=== PATIENT | male | born 1970 | race Caucasian/White ===

== ENCOUNTER 2021-11-13 11:44 | Day surgery (SDC) | payer OTHER ==
[2021-11-08 16:04] VITALS: BMI 40.6
[~2021-11-13 11:44] MED LIST: LIDOCAINE 1% (10MG/ML) FOR IV START INTRADERMA PRN
[2021-11-13] MEDS: LACTATED RINGERS 1,000 ML IV SCH ×2 (12:22→13:05)
[2021-11-13 12:28] VITALS: RESP 16; TEMP 98.1
[2021-11-13] MEDS ORDERED: PROPOFOL 10 MG/ML 20 ML VIAL IV ONE (13:09)
--- NOTE | 2021-11-13 13:29 | P.OP ---
Date of Procedure: 11/13/21 Preoperative Diagnosis: Screening colonoscopy screening colonoscopy Postoperative Diagnosis: Diverticulosis Procedure(s) Performed: Colonoscopy Anesthesia: MAC Surgeon: Nathan Morrison Pathology: none sent Condition: stable Disposition: PACU Description of Procedure: The patient's placed on the endoscopy table in the lateral position. He received IV sedation. Digital rectal exam was performed. This revealed no abnormalities. The flexible colonoscope was then placed patient anus and passed throughout the entire colon. The ileocecal valve was visualized. The cecum, ascending and transverse colon appeared normal. In the descending; there was moderate diverticular changes. The scope summer back the rectum and this appeared normal. Scope withdrawn for patient.
[2021-11-13 13:47] VITALS: BP 135/89; PULSE 79
--- NOTE | 2021-11-13 13:48 | P.GSHP ---
History of Present Illness H&P Date: 11/13/21 Chief Complaint: Screening colonoscopy This a 51-year-old male who presents today for screening colonoscopy. Patient denies a significant GI complaints. Past Medical History Past Medical History: Hypertension History of Any Multi-Drug Resistant Organisms: None Reported Past Surgical History: No Surgical Hx Reported Past Anesthesia/Blood Transfusion Reactions: No Reported Reaction Past Psychological History: No Psychological Hx Reported Smoking Status: Never smoker Past Alcohol Use History: Occasional Past Drug Use History: None Reported Medications and Allergies Home Medications Medication Instructions Recorded Confirmed Type Lisinopril [Zestril] 10 mg PO DAILY 11/08/21 11/13/21 History Allergies Allergy/AdvReac Type Severity Reaction Status Date / Time No Known Allergies Allergy Verified 11/13/21 12:08 Surgical - Exam Vital Signs Temp Pulse Resp BP Pulse Ox 98.1 F 97 16 137/67 96 11/13/21 12:15 11/13/21 12:15 11/13/21 12:15 11/13/21 12:15 11/13/21 12:15 - General well developed, no distress - Eyes PERRL - ENT normal pinna - Neck no masses - Respiratory normal expansion - Cardiovascular Rhythm: regular - Abdomen Abdomen: soft, non tender Assessment and Plan Assessment: We'll perform screening colonoscopy
== END 2021-11-13 14:05 | disposition home or self-care (01) ==
LOC: ORWHC2ENDO 11:44
PROVIDERS: ATTEND Surgery
DX: Z12.11 Encounter for screening for malignant neoplasm of colon (principal); K57.30 Diverticulosis of large intestine without perforation or abscess without bleeding; I10 Essential (primary) hypertension; Z79.899 Other long term (current) drug therapy; E66.01 Morbid (severe) obesity due to excess calories; Z68.39 Body mass index [BMI] 39.0-39.9, adult
CPT/HCPCS: J2704; G0121